=== PATIENT | male | born 1995 | race Caucasian/White ===

== ENCOUNTER 2022-02-05 19:33 | Emergency (ER) | payer SELFPAY ==
[~2022-02-05] VITALS: Ht 175.3 cm; Wt 127.0 kg
[2022-02-05 20:55] VITALS: BP 189/122
== END 2022-02-06 02:17 | disposition left against medical advice (07) ==
LOC: ER 19:33
DX: R05.9 Cough, unspecified (principal); R51.9 Headache, unspecified; R50.9 Fever, unspecified; Z20.822 Contact with and (suspected) exposure to COVID-19
CPT/HCPCS: 71045; 87426; 99284; C9803